=== PATIENT | female | born 1945 | race Two or more races ===

== ENCOUNTER 2017-06-05 00:26 | Inpatient (IN) | payer MEDICARE, MEDICAID ==
[~2017-06-05] VITALS: Ht 160 cm; Wt 78.9 kg
[2017-06-05] MEDS ORDERED: SODIUM CHLORIDE 0.9% 1,000 ML IV ONE (01:55)
[2017-06-05] MEDS ORDERED: MORPHINE SULFATE 4 MG/ML CPJ (NOT FOR IM USE) IV STA (01:55)
[2017-06-05] MEDS ORDERED: ONDANSETRON HCL 4MG/2ML VIAL IV STA (01:55)
[2017-06-05 02:09] LABS: CLARITY URINE CLEAR (CLEAR); COLOR URINE DARK YELLOW (YELLOW); GLUCOSE URINE NEGATIVE (NEGATIVE); KETONES URINE NEGATIVE (NEGATIVE); LEUKOCYTE ESTERASE URINE NEGATIVE (NEGATIVE); NITRITE URINE POSITIVE (NEGATIVE); OCCULT BLOOD URINE NEGATIVE (NEGATIVE); PH URINE 7.5 (4.5-8.0); PROTEIN URINE NEGATIVE (NEGATIVE); SPECIFIC GRAVITY URINE 1.005 (1.005-1.030); UROBILINOGEN URINE 0.2 E.U./dL (0.2-1.0)
[2017-06-05] MEDS ORDERED: LISI10TA5 PO (02:20)
[2017-06-05] MEDS ORDERED: LOVA40TA73 PO (02:21)
[2017-06-05] MEDS ORDERED: OMEP20TA15 PO (02:22)
[2017-06-05] MEDS ORDERED: FLUT16SP15 BOTHNSTRLS (02:24)
[2017-06-05 02:25] LABS: BASOPHILS % 0.3 % (0.0-2.0); EOSINOPHILS % 4.2 % (0.0-5.0); HEMATOCRIT. 33.9 % (36.0-48.0); HEMOGLOBIN. 11.3 g/dL (12.0-16.0); LYMPHOCYTES % 29.5 % (20.0-50.0); MEAN CORPUSCULAR HEMOGLOBIN 27.8 pg (28.0-32.0); MEAN CORPUSCULAR VOLUME 83.4 fL (81.0-99.0); MEAN PLATELET VOLUME 8.1 fl (7.4-10.4); MONOCYTES % 7.2 % (2.0-8.0); NEUTROPHILS % 58.8 % (40.0-76.0); PLATELET 283 x1000/uL (130-400); RED BLOOD CELL COUNT 4.06 mill/uL (4.2-5.4); RED CELL DISTRIBUTION WIDTH 13.4 % (11.6-14.6)
[2017-06-05] MEDS ORDERED: LORA0.5T2 PO (02:25)
[2017-06-05] MEDS ORDERED: HYDR25TA PO (02:31)
[2017-06-05 02:33] LABS: PROTHROMBIN TIME 10.4 sec (9.4-11.6)
[2017-06-05 02:42] LABS: CARBON DIOXIDE 28 mEq/L (21-32); CHLORIDE 93 mEq/L (98-107); TROPONIN I < 0.02 ng/mL (0.00-0.04)
[2017-06-05] MEDS ORDERED: ASPIRIN 325MG TABLET PO ONE (03:45)
[2017-06-05] MEDS ORDERED: ONDANSETRON HCL 4MG/2ML VIAL IV PRN (08:00)
[2017-06-05] MEDS ORDERED: CLONIDINE 0.1MG TABLET PO PRN (08:00)
[2017-06-05] MEDS ORDERED: LORAZEPAM 2MG/ML CPJ IV PRN (08:00)
[2017-06-05] MEDS ORDERED: HYDROCODONE/ACETAMINOPHEN 5/325MG TABLET PO PRN (08:00)
[2017-06-05 08:25] VITALS: BP 126/71
[2017-06-05] MEDS: ENOXAPARIN 40MG/0.4ML SYR SUBCUT SCH (09:00)
[2017-06-05] MEDS ORDERED: IOHEXOL-350 100 ML BOTTLE ONE (09:02)
[2017-06-05] MEDS ORDERED: SODIUM CHLORIDE 0.9% 10ML VIAL ONE (09:02)
[2017-06-05] MEDS: THIAMINE HCL 100MG TABLET PO SCH (09:29)
[2017-06-05] MEDS: ASPIRIN 81MG EC TABLET PO SCH (09:29)
[2017-06-05 09:48] VITALS: BP 126/71
[2017-06-05 12:00] VITALS: BP 131/76
[2017-06-05] MEDS: LISINOPRIL 10MG TABLET PO SCH (12:30)
[2017-06-05] MEDS: MORPHINE SULFATE 2 MG/ML CPJ (NOT FOR IM USE) IV PRN (12:40)
[2017-06-05 16:11] VITALS: BP 99/44
[2017-06-05 17:10] LABS: CREATINE KINASE 73 IU/L (26-192); CREATINE KINASE MB FRACTION 0.8 ng/mL (0.5-3.6); TROPONIN I < 0.02 ng/mL (0.00-0.04)
[2017-06-05] MEDS: LEVOFLOXACIN 500MG PREMIX 100 ML IV SCH (18:10)
[2017-06-05 20:00] VITALS: BP 99/66
[2017-06-05 23:59] LABS: CREATINE KINASE 53 IU/L (26-192); CREATINE KINASE MB FRACTION 0.5 ng/mL (0.5-3.6); TROPONIN I < 0.02 ng/mL (0.00-0.04)
[2017-06-06] VITALS: BP 112/61
[2017-06-06 04:00] VITALS: BP 103/57
[2017-06-06 07:30] LABS: BASOPHILS % 0.3 % (0.0-2.0); EOSINOPHILS % 3.9 % (0.0-5.0); HEMATOCRIT. 34.6 % (36.0-48.0); HEMOGLOBIN. 11.6 g/dL (12.0-16.0); LYMPHOCYTES % 34.1 % (20.0-50.0); MEAN CORPUSCULAR HEMOGLOBIN 27.9 pg (28.0-32.0); MEAN CORPUSCULAR VOLUME 83.6 fL (81.0-99.0); MEAN PLATELET VOLUME 8.5 fl (7.4-10.4); MONOCYTES % 8.4 % (2.0-8.0); NEUTROPHILS % 53.3 % (40.0-76.0); PLATELET 279 x1000/uL (130-400); RED BLOOD CELL COUNT 4.14 mill/uL (4.2-5.4); RED CELL DISTRIBUTION WIDTH 13.6 % (11.6-14.6)
[2017-06-06] MEDS: THIAMINE HCL 100MG TABLET PO SCH (08:03)
[2017-06-06] MEDS: MORPHINE SULFATE 2 MG/ML CPJ (NOT FOR IM USE) IV PRN (08:03)
[2017-06-06] MEDS: LISINOPRIL 10MG TABLET PO SCH (08:04)
[2017-06-06] MEDS: ASPIRIN 81MG EC TABLET PO SCH (08:09)
[2017-06-06] MEDS: ENOXAPARIN 40MG/0.4ML SYR SUBCUT SCH (08:10)
[2017-06-06 08:51] LABS: CARBON DIOXIDE 24 mEq/L (21-32); CHLORIDE 101 mEq/L (98-107)
[2017-06-06 09:10] VITALS: BP 121/73
[2017-06-06] MEDS ORDERED: LORAZEPAM 0.5MG TABLET PO SCH (10:00)
[2017-06-06 12:32] VITALS: BP 110/59
[2017-06-06] MEDS: LEVOFLOXACIN 500MG PREMIX 100 ML IV SCH (12:52)
[2017-06-06] MEDS ORDERED: POTASSIUM CHLORIDE 20MEQ TABLET SR PO NR (14:30)
[2017-06-06 17:11] VITALS: BP 120/67
[2017-06-06 17:24] VITALS: BP 120/67
== END 2017-06-06 17:40 | disposition home or self-care (01) | DRG 315 ==
LOC: ER 00:27 → 5WST 03:36 → EDBEDREQTM 03:41 → EDBEDREQ 03:41 → ENRESERV 07:01 → SUPCPDRO 07:53 → 5WST 15:06
PROVIDERS: ADMIT Internal Medicine Nephrology; ATTEND Internal Medicine Nephrology
DX: I95.9 Hypotension, unspecified (principal); E44.1 Mild protein-calorie malnutrition; I10 Essential (primary) hypertension; R07.89 Other chest pain; E11.9 Type 2 diabetes mellitus without complications; E78.5 Hyperlipidemia, unspecified; E78.00 Pure hypercholesterolemia, unspecified; F41.9 Anxiety disorder, unspecified; R51 Headache; R20.0 Anesthesia of skin; R11.2 Nausea with vomiting, unspecified; Z79.899 Other long term (current) drug therapy
CPT/HCPCS: 36415; 51702; 70450; 70551; 71010; 71275; 80048; 80053; 81001; 82550; 82553; 82962; 83036; 83735; 84443; 84484; 85025; 85610; 93005; 93306; 93880; 96361; 96374; 96375; 97162; 97530; 99291; A4216; J1650; J1956; J2270; J2405; J7030; J7040; Q9967; A4315